=== PATIENT | male | born 1970 | race Caucasian/White ===

== ENCOUNTER 2018-06-11 11:50 | Emergency (ER) | payer OTHER ==
[~2018-06-11] VITALS: Ht 167.6 cm; Wt 98.0 kg
[2018-06-11 12:02] VITALS: Ht 167.6 cm; Wt 98.0 kg
[2018-06-11 15:26] VITALS: BP 125/84
== END 2018-06-11 15:26 | disposition home or self-care (01) ==
LOC: ED 11:50
DX: S46.911A Strain of unspecified muscle, fascia and tendon at shoulder and upper arm level, right arm, initial encounter (principal); K21.9 Gastro-esophageal reflux disease without esophagitis; W22.01XA Walked into wall, initial encounter; Y93.89 Activity, other specified; Y92.89 Other specified places as the place of occurrence of the external cause; Y99.8 Other external cause status
CPT/HCPCS: Q0092

== ENCOUNTER 2019-10-11 06:55 | Day surgery (SDC) | payer OTHER ==
[~2019-10-11] VITALS: Ht 170.2 cm; Wt 97.5 kg
[2019-10-11 07:23] VITALS: BP 130/91
[2019-10-11 11:50] VITALS: BP 117/78
== END 2019-10-11 11:10 | disposition home or self-care (01) ==
LOC: DS 06:55 → GI 09:00 → OR 09:00 → DS 11:10
DX: R14.0 Abdominal distension (gaseous) (principal); K57.30 Diverticulosis of large intestine without perforation or abscess without bleeding; K21.9 Gastro-esophageal reflux disease without esophagitis; E78.00 Pure hypercholesterolemia, unspecified; M17.0 Bilateral primary osteoarthritis of knee; Z79.899 Other long term (current) drug therapy; Z98.890 Other specified postprocedural states
CPT/HCPCS: 45378; J1200; J1610; J2250; J2310; J3010; J3490